=== PATIENT | male | born 1935 | race Caucasian/White ===

== ENCOUNTER 2020-10-28 20:47 | Emergency (ER) | payer MEDICARE, OTHER ==
[~2020-10-28] VITALS: Ht 180.3 cm; Wt 92.5 kg
[2020-10-28 20:47] VITALS: BP_SYST 189
[2020-10-28] MEDS: ASPIRIN 325 MG TABLET PO ONE (21:11)
[2020-10-28] MEDS: NITROGLYCERIN 0.4 MG TAB.SUBL SL ONE (21:12)
[2020-10-28 21:16] LABS: BASOPHILS # (AUTO) 0.1 K/uL (0.0-0.2); BASOPHILS % (AUTO) 0.6 % (0.0-2.0); EOSINOPHILS # (AUTO) 0.5 K/uL (0.0-0.4); EOSINOPHILS % (AUTO) 5.5 % (0.0-4.0); HEMATOCRIT 43.9 % (36-54); LYMPHOCYTES # (AUTO) 1.7 K/uL (1.0-5.5); LYMPHOCYTES % (AUTO) 20.8 % (20.5-51.5); MEAN CORPUSCULAR HEMOGLOBIN 30 pg (27-31); MEAN CORPUSCULAR HGB CONC 34 % (32-36); MEAN CORPUSCULAR VOLUME 87 fL (79.0-98.0); MONOCYTES # (AUTO) 0.9 K/uL (0.0-1.0); MONOCYTES % (AUTO) 10.4 % (1.7-9.3); NEUTROPHILS # (AUTO) 5.2 K/uL (1.8-7.7); NEUTROPHILS % (AUTO) 62.7 % (40.0-70.0); PLATELET COUNT (AUTO) 171 K/uL (130-430); RED BLOOD CELL COUNT(AUTO) 5.05 MIL/uL (4.2-6.2); RED CELL DISTRIBUTION WIDTH 14.5 % (9.0-15.0); WHITE BLOOD COUNT (AUTO) 8.4 K/uL (4.8-10.8)
[2020-10-28] MEDS ORDERED: ASPI-1393 PO (21:28)
[2020-10-28] MEDS ORDERED: MAGN250T10 PO (21:28)
[2020-10-28] MEDS ORDERED: HYDR12.55 (21:28)
[2020-10-28] MEDS ORDERED: LEVO200T8 PO (21:28)
[2020-10-28] MEDS ORDERED: CARV3.1246 PO (21:28)
[2020-10-28] MEDS ORDERED: PIOG30TA71 PO (21:28)
[2020-10-28] MEDS ORDERED: METF1000 PO (21:28)
[2020-10-28] MEDS ORDERED: INSU300I SQ (21:28)
[2020-10-28] MEDS ORDERED: ASCO500T20 PO (21:28)
[2020-10-28 21:36] LABS: ANION GAP 9 (5-15); CALCIUM 8.9 mg/dL (8.4-11.0); CHLORIDE 101 mmol/L (98-107); CREATININE 1.22 mg/dL (0.55-1.30); GLUCOSE 218 mg/dL (70-99); POTASSIUM 3.7 mmol/L (3.5-5.1); SODIUM SERUM 136 mmol/L (136-145); UREA NITROGEN, BLOOD 13 mg/dL (8-21)
[2020-10-28] MEDS: NACL 0.9% 1,000 ML IV ONE (22:06)
[2020-10-28] MEDS: *HEPARIN PER PHARMACY XX ONE (22:24)
[2020-10-28] MEDS: HEPARIN SODIUM,PORCINE 5,000 UNITS/ML VIAL IVP ONE (22:24)
[2020-10-28 22:32] VITALS: BP_SYST 124
== END 2020-10-28 22:32 | disposition short-term general hospital (02) ==
LOC: SED 20:47
DX: I24.9 Acute ischemic heart disease, unspecified (principal); R07.89 Other chest pain; I10 Essential (primary) hypertension; E07.9 Disorder of thyroid, unspecified; E11.9 Type 2 diabetes mellitus without complications; K21.9 Gastro-esophageal reflux disease without esophagitis; F17.200 Nicotine dependence, unspecified, uncomplicated; Z79.899 Other long term (current) drug therapy; Z79.82 Long term (current) use of aspirin; Z20.822 Contact with and (suspected) exposure to COVID-19
CPT/HCPCS: 36415; 71045; 80048; 83880; 84484; 85025; 87426; 96361; 96374; 99285; J7030

== ENCOUNTER 2021-10-21 14:50 | Inpatient (IN) | payer MEDICARE, OTHER, SELFPAY ==
[~2021-10-21] VITALS: Ht 180.3 cm; Wt 97.3 kg
[2021-10-21 14:50] VITALS: BP_SYST 140
[~2021-10-21 14:50] MED LIST: ASCO500T20 PO; ASPI-1393 PO; CARV3.1246 PO; HYDR12.55; INSU300I SQ; LEVO200T8 PO; MAGN250T10 PO; METF1000 PO; PIOG30TA71 PO
[2021-10-21] MEDS ORDERED: NITROGLYCERIN 1 INCH (GM) OINT. TD ONE (15:45)
[2021-10-21] MEDS ORDERED: ASPIRIN 81 MG TAB.CHEW PO ONE (15:45)
[2021-10-21 15:53] LABS: BASOPHILS % (AUTO) 0.3 % (0.0-2.0); EOSINOPHILS # (AUTO) 0.3 K/uL (0.0-0.4); EOSINOPHILS % (AUTO) 5.1 % (0.0-4.0); HEMATOCRIT 27.8 % (36-54); HEMOGLOBIN 8.9 g/dL (14.0-18.0); LYMPHOCYTES # (AUTO) 1.2 K/uL (1.0-5.5); LYMPHOCYTES % (AUTO) 19.9 % (20.5-51.5); MEAN CORPUSCULAR HEMOGLOBIN 25 pg (27-31); MEAN CORPUSCULAR HGB CONC 32 % (32-36); MEAN CORPUSCULAR VOLUME 76 fL (79.0-98.0); MONOCYTES # (AUTO) 0.9 K/uL (0.0-1.0); MONOCYTES % (AUTO) 14.5 % (1.7-9.3); NEUTROPHILS # (AUTO) 3.5 K/uL (1.8-7.7); NEUTROPHILS % (AUTO) 60.2 % (40.0-70.0); PLATELET COUNT (AUTO) 152 K/uL (130-430); RED BLOOD CELL COUNT(AUTO) 3.64 MIL/uL (4.2-6.2); RED CELL DISTRIBUTION WIDTH 16.2 % (9.0-15.0); WHITE BLOOD COUNT (AUTO) 5.9 K/uL (4.8-10.8)
[2021-10-21] MEDS ORDERED: KETOROLAC TROMETHAMINE 30 MG VIAL IVP ONE (16:00)
[2021-10-21 16:45] LABS: ANION GAP 8 (5-15); CALCIUM 8.4 mg/dL (8.4-11.0); CHLORIDE 104 mmol/L (98-107); CREATININE 0.86 mg/dL (0.55-1.30); GLUCOSE 187 mg/dL (70-99); POTASSIUM 3.7 mmol/L (3.5-5.1); SODIUM SERUM 137 mmol/L (136-145); UREA NITROGEN, BLOOD 14 mg/dL (8-21)
[2021-10-21 16:57] LABS: ALANINE AMINOTRANSFERASE 33 U/L (12-78); ASPARTATE AMINOTRANSFERASE 31 U/L (10-37); TOTAL BILIRUBIN 0.3 mg/dL (0.0-1.0)
[2021-10-21 17:18] LABS: BILIRUBIN,URINE NEGATIVE (NEGATIVE); BLOOD, URINE NEGATIVE (NEGATIVE); CLARITY/URINE CLEAR (CLEAR); COLOR,URINE YELLOW (YELLOW); GLUCOSE,URINE NEGATIVE (NEGATIVE); KETONES,URINE TRACE (NEGATIVE); LEUKOCYTE ESTERASE ,URINE NEGATIVE (NEGATIVE); NITRITE, URINE NEGATIVE (NEGATIVE); PH,URINE 5.5 (5.0-8.0); PROTEIN URINE NEGATIVE (NEGATIVE); UROBILINOGEN,URINE 0.2 (0.2-1.0)
[2021-10-21 17:25] LABS: PROTHROMBIN TIME 10.4 SECS (9.5-12.5)
[2021-10-21] MEDS ORDERED: TICA90TA PO (17:57)
[2021-10-21] MEDS ORDERED: PRO40 PO (18:33)
[2021-10-21] MEDS ORDERED: PIOG30TA70 PO (18:33)
[2021-10-21] MEDS ORDERED: LIP40 PO (18:33)
[2021-10-21 21:00] VITALS: BP_SYST 135
[2021-10-21] MEDS ORDERED: INSULIN REGULAR, HUMAN 100 UNITS/ML, 10 ML VIAL (humuLIN R) SUBCUT PRN (21:15)
[2021-10-21] MEDS ORDERED: LevALBUTEROL HCL 1.25 MG/0.5 ML *CONC.* VIAL.NEB (XOPENEX CONC.) INH PRN (21:15)
[2021-10-21] MEDS ORDERED: FLUTICASONE 250 mCg/SALMETEROL 50 mCg DISKUS W.DEV INH SCH (21:15)
[2021-10-21] MEDS: LevALBUTEROL HCL 1.25 MG/0.5 ML *CONC.* VIAL.NEB (XOPENEX CONC.) INH SCH (23:00)
[2021-10-22] VITALS: BP_SYST 138
[2021-10-22 01:13] VITALS: BP_SYST 135
[2021-10-22] MEDS: LEVOTHYROXINE SODIUM 0.1 MG TABLET PO SCH (05:47)
[2021-10-22 07:33] LABS: TOTAL IRON BIND. CAPACITY 343 ug/dL (250-450)
[2021-10-22 08:00] VITALS: BP_SYST 129
[2021-10-22] MEDS ORDERED: PIOGLITAZONE HCL 30 MG TABLET PO SCH (09:00)
[2021-10-22] MEDS ORDERED: MAGNESIUM OXIDE 250 MG PO SCH (09:00)
[2021-10-22] MEDS: CARVEDILOL 3.125 MG TABLET (COREG) PO SCH ×2 (09:33→20:53)
[2021-10-22] MEDS: PIOGLITAZONE HCL 15 MG TABLET PO SCH (09:35)
[2021-10-22] MEDS: metFORMIN HCL 500 MG TABLET PO SCH ×2 (09:35→21:00)
[2021-10-22] MEDS: ASCORBIC ACID 500 MG TABLET PO SCH (09:35)
[2021-10-22] MEDS: PANTOPRAZOLE SODIUM 40 MG TAB PO SCH (09:35)
[2021-10-22] MEDS: ATORVASTATIN 20 MG TABLET PO SCH (09:36)
[2021-10-22] MEDS: ASPIRIN 81 MG TABLET(ECOTRIN) PO SCH (09:36)
[2021-10-22 12:30] VITALS: BP_SYST 142
[2021-10-22 16:00] VITALS: BP_SYST 138
[2021-10-22] MEDS: BUDESONIDE 0.5 MG/2 ML AMPUL.NEB INH SCH (20:01)
[2021-10-22] MEDS: ALBUTEROL SULFATE 0.083% 2.5 MG/3 ML VIAL.NEB INH SCH ×2 (20:01→21:25)
[2021-10-22] MEDS: LevALBUTEROL HCL 1.25 MG/0.5 ML *CONC.* VIAL.NEB (XOPENEX CONC.) INH SCH (20:02)
[2021-10-22] MEDS ORDERED: INSULIN GLARGINE 100 UNITS/ML 10 ML VIAL SUBCUT SCH (21:00)
[2021-10-23 00:51] VITALS: BP_SYST 119
[2021-10-23] MEDS: LevALBUTEROL HCL 1.25 MG/0.5 ML *CONC.* VIAL.NEB (XOPENEX CONC.) INH SCH ×2 (03:10→03:11)
[2021-10-23] MEDS: ALBUTEROL SULFATE 0.083% 2.5 MG/3 ML VIAL.NEB INH SCH ×2 (03:11→03:12)
[2021-10-23] MEDS: BUDESONIDE 0.5 MG/2 ML AMPUL.NEB INH SCH (03:11)
[2021-10-23 04:00] VITALS: BP_SYST 129
[2021-10-23] MEDS: LEVOTHYROXINE SODIUM 0.1 MG TABLET PO SCH (06:20)
[2021-10-23 07:17] LABS: BASOPHILS % (AUTO) 0.4 % (0.0-2.0); EOSINOPHILS # (AUTO) 0.3 K/uL (0.0-0.4); EOSINOPHILS % (AUTO) 5.3 % (0.0-4.0); HEMOGLOBIN 8.7 g/dL (14.0-18.0); LYMPHOCYTES # (AUTO) 1.2 K/uL (1.0-5.5); LYMPHOCYTES % (AUTO) 23.5 % (20.5-51.5); MEAN CORPUSCULAR HEMOGLOBIN 24 pg (27-31); MEAN CORPUSCULAR HGB CONC 32 % (32-36); MEAN CORPUSCULAR VOLUME 76 fL (79.0-98.0); MONOCYTES # (AUTO) 0.7 K/uL (0.0-1.0); NEUTROPHILS # (AUTO) 2.9 K/uL (1.8-7.7); NEUTROPHILS % (AUTO) 56.8 % (40.0-70.0); PLATELET COUNT (AUTO) 146 K/uL (130-430); RED BLOOD CELL COUNT(AUTO) 3.58 MIL/uL (4.2-6.2); RED CELL DISTRIBUTION WIDTH 16.3 % (9.0-15.0); WHITE BLOOD COUNT (AUTO) 5.1 K/uL (4.8-10.8)
[2021-10-23 07:32] LABS: ANION GAP 10 (5-15); CALCIUM 8.6 mg/dL (8.4-11.0); CHLORIDE 105 mmol/L (98-107); CREATININE 0.78 mg/dL (0.55-1.30); GLUCOSE 111 mg/dL (70-99); POTASSIUM 3.7 mmol/L (3.5-5.1); SODIUM SERUM 139 mmol/L (136-145); UREA NITROGEN, BLOOD 19 mg/dL (8-21)
[2021-10-23 08:16] VITALS: BP_SYST 142
[2021-10-23] MEDS: metFORMIN HCL 500 MG TABLET PO SCH ×2 (08:58→17:12)
[2021-10-23] MEDS: PIOGLITAZONE HCL 15 MG TABLET PO SCH (08:58)
[2021-10-23] MEDS: ATORVASTATIN 20 MG TABLET PO SCH (08:58)
[2021-10-23] MEDS: ASCORBIC ACID 500 MG TABLET PO SCH (08:58)
[2021-10-23] MEDS: CARVEDILOL 3.125 MG TABLET (COREG) PO SCH (08:58)
[2021-10-23] MEDS: ASPIRIN 81 MG TABLET(ECOTRIN) PO SCH (08:58)
[2021-10-23] MEDS: PANTOPRAZOLE SODIUM 40 MG TAB PO SCH (08:59)
[2021-10-23 12:15] VITALS: BP_SYST 135
[2021-10-23 16:36] VITALS: BP_SYST 138
== END 2021-10-23 17:25 | disposition home or self-care (01) | DRG 192 ==
LOC: SED 14:50 → STU 17:37
PROVIDERS: ADMIT Family Medicine; ATTEND Family Medicine
DX: J44.1 Chronic obstructive pulmonary disease with (acute) exacerbation (principal); I25.10 Atherosclerotic heart disease of native coronary artery without angina pectoris; F17.200 Nicotine dependence, unspecified, uncomplicated; E11.9 Type 2 diabetes mellitus without complications; D64.9 Anemia, unspecified; Z20.822 Contact with and (suspected) exposure to COVID-19; K21.9 Gastro-esophageal reflux disease without esophagitis; I11.0 Hypertensive heart disease with heart failure; I50.9 Heart failure, unspecified; Z95.5 Presence of coronary angioplasty implant and graft; Z88.5 Allergy status to narcotic agent; Z88.2 Allergy status to sulfonamides
CPT/HCPCS: 36415; 71045; 80048; 80053; 81003; 82272; 82607; 82728; 82746; 82962; 83540; 83550; 83880; 84484; 85025; 85610-TC; 93005; 93306; 99285; G0378; J1885; J7612